=== PATIENT | female | born 1960 | race Caucasian/White ===

== ENCOUNTER 2016-08-25 07:42 | Day surgery (SDC) | payer OTHER ==
[2016-08-24 09:59] LABS: BASOPHILS 0.7 %; BASOPHILS ABSOLUTE 0.07 10/3/uL (0.0-0.16); EOSINOPHILS 3.7 %; EOSINOPHILS ABSOLUTE 0.35 10/3/uL (0.0-0.53); IMMATURE GRANULOCYTES 0.2 %; IMMATURE GRANULOCYTES ABSOLUTE 0.02 10/3/uL (0.0-0.11); LYMPHOCYTES 30.4 %; LYMPHOCYTES ABSOLUTE 2.84 10/3/uL (0.67-4.30); MEAN CORPUSCULAR HEMOGLOB 30.5 pg (26.0-34.0); MEAN PLATELET VOLUME 10.3 fL (9.2-13.0); MONOCYTES 6.7 %; MONOCYTES ABSOLUTE 0.63 10/3/uL (0.21-1.20); NEUTROPHILS 58.3 %; NEUTROPHILS ABSOLUTE 5.44 10/3/uL (2.02-8.40); PLATELET COUNT 279 10/3/uL (150-400); RBC DISTRIBUTION WIDTH 16.1 % (12.0-16.0); WHITE BLOOD CELLS 9.4 10/3/uL (4.5-10.5)
[2016-08-24 10:00] LABS: HEMATOCRIT 44.5 % (36.0-48.0); HEMOGLOBIN 15.4 g/dL (12.0-16.0); MANUAL DIFF NO %; MEAN CORPUS HGB CONC 34.6 g/dL (32.0-36.0); MEAN CORPUSCULAR VOLUME 88.1 fL (80-100); RED CELL COUNT 5.05 10/6/uL (4.0-5.6)
[2016-08-24 10:06] LABS: PROTIME (NOT ORD) 13.1 SEC (12.0-14.5)
[2016-08-24 10:07] LABS: PARTIAL THROMBO TIME 28.9 SEC (22.5-37.2)
[2016-08-24 15:03] LABS: BUN (BLOOD UREA NITROGEN) 20 MG/DL (6-23); CALCIUM, SERUM 9.4 MG/DL (8.5-10.4); CHLORIDE, SERUM 101 MMOL/L (96-112); CO2 (CARBON DIOXIDE) 24 MMOL/L (24-34); CREATININE 1.11 MG/DL (0.55-1.02); GFR AFRICAN AMERICAN 65 ML/MIN (>=60); GFR NON AFRICAN AMERICAN 56 ML/MIN (>=60); POTASSIUM, SERUM 4.7 MMOL/L (3.5-5.3); SODIUM, SERUM 136 MMOL/L (135-148)
[2016-08-24 15:05] LABS: GLUCOSE, SERUM 222 MG/DL (60-99)
--- NOTE | ~2016-08-25 | OP ---
Record Of Operation [facility] [address] [place]. [address] NAME: GINA GARVIN : 62 STATUS : [facility]#: [id number] AGE: 55 ADM/REG DATE : 08/25/16 MR#: [id number] REPORT SERV DATE: 08/25/16 DICTATED BY: GIULIANO MEJIA DATE: 08/25/16 REPORT STATUS : Draft TRANSCRIBED BY: MODVanesa DATE: 08/25/16 DATE OF PROCEDURE: 08/25/2016 PREOPERATIVE DIAGNOSES: 1. 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 2. Left hydronephrosis. 3. History of urinary tract infection. POSTOPERATIVE DIAGNOSES: 1. 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 2. Left hydronephrosis. 3. History of urinary tract infection. PROCEDURE PERFORMED: Cystoscopy, mechanical fragmentation of bladder calculi, retrograde pyelogram, rigid ureteroscopy, flexible ureterorenoscopy, holmium laser stone fragmentation of renal calculi, and stent exchange. SURGEON: Giuliano Mejia M.D. ANESTHESIA: General. ESTIMATED BLOOD LOSS: 15 mL. INDICATIONS: This is a 55-year-old white female, who has had a history of flank discomfort and recurrent UTIs. She has been found to have a retained ureteral stent for approximately 10 years from I believe from previous [employer] surgery. The stent has calcifications on the distal coil and likely the proximal coil as well. We are planning cystoscopy with attempted stent removal and fragmentation, and/or removal of any stones required, and stent replacement as well. Risks of infection, bleeding, the distinct possibility of failure with need for multiple surgeries have been discussed. PROCEDURE IN DETAIL: The patient was taken to the operating room and underwent a general anesthetic. She was placed in a lithotomy position on the table, and her external genitalia were sterilely prepped and draped. The 22-Indian cystoscope sheath with 30-degree lens was inserted under direct vision per urethra with the aid of the video monitor. The bladder was inspected. The urine was minimally cloudy, but the visibility was good. The bladder was a little bit diffusely irritated. No mass lesions were noted. The distal end of the left stent was noted to protrude from the left orifice, it was encrusted with stone. The right orifice was normal. We used the grasping forceps to mechanically fragment the stone on the distal end of the stent. With the grasping forceps, we were able to pull the distal end of the stent out of the urethral meatus until the proximal end of the stent was observed to the hang up in the proximal ureter. A retrograde pyelogram was then obtained using a 5-Indian open-ended catheter showing a dilated ureter and dilated renal collecting system. I placed an 0.038 guidewire up into the collecting system of the kidney. The rigid ureteroscope was then advanced up alongside the stent. There were some mild calcifications along the length of the stent, but not too bad, and most of these were sheared off by the rigid scope. The Record Of [facility] [address]. [address] NAME: GINA GARVIN : 62 STATUS : [facility]#: [id number] AGE: 55 ADM/REG DATE : 08/25/16 MR#: [id number] REPORT SERV DATE: 08/25/16 DICTATED BY: GIULIANO MEJIA DATE: 08/25/16 REPORT STATUS : Draft TRANSCRIBED BY: KULWINDER DATE: 08/25/16 scope was able to be advanced up into approximately the mid ureter. While gently pulling on the distal end of the retained stent, I was able to pull it past the scope in such that some proximal stones were sheared off the proximal end of the stent, and the old stent was able to be removed intact. At this point, the rigid ureteral scope was withdrawn from the ureter and the bladder, and an 11/13-Indian ureteral access sheath with obturator was advanced over the existing guidewire into the proximal ureter. A second guidewire was placed into the kidney as a safety wire. The access sheath and obturator were then reinserted over one of the two guidewires leaving the other in place as a safety wire, and the flexible ureteroscope was advanced through the access sheath, and on up into the proximal ureter, and into the kidney. The collecting system was dilated and the urine was slightly cloudy. The visibility was not bad. There were few fragments of stone presumably sheared from the proximal end of the stent that were fragmented into very small pieces using the 200 micron holmium laser. The collecting system was systematically inspected and at the conclusion of this, there were no large stone fragments remaining. The scope was withdrawn under direct vision down through the ureter, and there were no significant stones remaining in the ureter, and no sign of any significant ureteral trauma either. The cystoscope was then replaced over the guidewire and a 6-Indian x 26 cm Contour stent was advanced over the guidewire such that the proximal end of the stent was observed to coil in the pelvic region of the kidney under fluoroscopic guidance, and the distal end of the stent was visually observed to coil in the bladder, following removal of the guidewire. The stent was left connected to a string dangle which was taped to the patient's inner thigh. The bladder was drained. All endoscopic apparatus was removed. She tolerated the procedure very well. There were no complications. She was taken to recovery in stable condition. MARY LOU/KULWINDER Giuliano Mejia M.D. / [id number] CC: Rylee Álvarez M.D.
[~2016-08-25 07:42] MED LIST: AMARYL2; ASAB PO; BRILINTA90 MG PO; COG2 PO; CRESTOR10 PO; CRESTOR20 MG PO; EFFEX25 PO; EFFEXOR PO; EFFEXXR75 PO; FORTAMET1000 MG PO; FORTAMET500 MG PO; GLUCPH8 PO; HALF81 PO; INSNOV7030 SC; LEVEMFLXPN SC; LIPITOR10 PO; MACROBID PO; STARLIX60 PO; THIOTHIXENE 10 MG PO; TOPXL25 PO; TRAZODONE150 MG PO; TRAZODONE300 MG PO; VICTOZA18 MG/3 ML SC; [UNRECOGNIZED DRUG - OTHER] PO
[2016-08-31 13:13] LABS: STONE COMPOSITION TWO DNR (())
== END 2016-08-25 13:41 | disposition home or self-care (01) ==
LOC: SDC 07:42
PROVIDERS: Urology
PROC: 0TCB8ZZ Extirpation of Matter from Bladder, Via Natural or Artificial Opening Endoscopic (ICD-10-PCS; 2016-08-25)
PROC: 0TCB8ZZ Extirpation of Matter from Bladder, Via Natural or Artificial Opening Endoscopic (ICD-10-PCS; principal; 2016-08-25 10:00)
DX: N13.2 Hydronephrosis with renal and ureteral calculous obstruction (principal); E66.9 Obesity, unspecified; E78.00 Pure hypercholesterolemia, unspecified; F17.210 Nicotine dependence, cigarettes, uncomplicated; E11.9 Type 2 diabetes mellitus without complications; I25.10 Atherosclerotic heart disease of native coronary artery without angina pectoris; E78.5 Hyperlipidemia, unspecified; I25.2 Old myocardial infarction; Z68.33 Body mass index [BMI] 33.0-33.9, adult; Z87.440 Personal history of urinary (tract) infections; Z88.1 Allergy status to other antibiotic agents; Z88.8 Allergy status to other drugs, medicaments and biological substances; Z95.5 Presence of coronary angioplasty implant and graft; Z90.49 Acquired absence of other specified parts of digestive tract; Z98.890 Other specified postprocedural states; Z86.69 Personal history of other diseases of the nervous system and sense organs
CPT/HCPCS: 71020; 74420; 80048; 82365; 82962; 85025; 85610; 85730; 88300; A9270-GY; C1758; C2617; J2250; J2405; J2710; J3010; Q9967